=== PATIENT | female | born 1995 | race Caucasian/White ===

== ENCOUNTER 2023-02-18 15:45 | Outpatient (CLI) | payer OTHER, SELFPAY ==
--- NOTE | 2023-02-18 16:00 | CRLHL7_ITS ---
For Patients: As a result of the Cures Act, medical imaging exams and procedure reports are released immediately into your electronic medical record. You may view this report before your referring provider. If you have questions, please contact your health care provider. INDICATION: First trimester scan, establish dates. COMPARISON: None. TECHNIQUE: Real-time austni-scale imaging of the pelvis was performed. FINDINGS: Sonographic imaging demonstrates a single living intrauterine gestation. The embryo demonstrates a regular cardiac rate measuring 171 beats per minute. The embryo`s crown-rump length measurement of 2.5 cm corresponds to a gestational age of 9 weeks 2 days with a sonographic due date of 09/21/2023. There is a normal-appearing yolk sac. There are no gross abnormalities noted within the embryo at this early state of development. The gestational sac has a normal appearance. There is no evidence of a perigestational hemorrhage. The amount of fluid within the sac appears appropriate for gestational age. The cervix is closed. The myometrium appears normal. The ovaries are of normal size. There are no suspicious fluid collections noted in the cul-de-sac. IMPRESSION: Normal first trimester OB ultrasound exam. Gestational age calculated at 9 weeks 2 days with a sonographic due date of 09/21/2023. Dictated by Chacho Kennedy MD @ 02/20/2023 8:31:27 AM (Electronically Signed)
== END 2023-02-18 15:46 | disposition home or self-care (01) ==
PROVIDERS: PCP Nurse Practitioner Family; Visit Provider Registered Nurse
DX: Z34.91 Encounter for supervision of normal pregnancy, unspecified, first trimester (principal); Z3A.09 9 weeks gestation of pregnancy
CPT/HCPCS: 76817; 86703; 86706; 86803; 86850; 86900; 86901; 87086; 87340; 87491; 87591

== ENCOUNTER 2023-02-18 16:53 | Outpatient (CLI) | payer OTHER, SELFPAY ==
[2023-02-18 23:57] LABS: Chlamydia DNA Amplified* NOT DETECTED (No Detected); GC DNA Amplified* NOT DETECTED (No Detected)
== END 2023-02-18 16:54 | disposition home or self-care (01) ==
PROVIDERS: PCP Nurse Practitioner Family; Visit Provider Registered Nurse
DX: Z34.90 Encounter for supervision of normal pregnancy, unspecified, unspecified trimester (principal)
CPT/HCPCS: 86592; 86703; 86704; 86706; 86762; 86787; 86803; 86850; 86900; 86901; 87086; 87340; 87491; 87591

== ENCOUNTER 2023-05-06 16:18 | Outpatient (CLI) | payer OTHER, SELFPAY ==
--- NOTE | 2023-05-06 17:00 | US_ITS ---
Final Report Patient: CHRISTOPHER MILLS Facility:?[facility] Patient ID:?[id number] Site Patient ID:?[id number]. Site :?1995 Study:?US OB Pelvis -05/06/2023 5:26:21 PM Ordering Physician:?DEAN YUSUF Final Report: INDICATION: Evaluate anatomy. COMPARISON: 02/18/2023 TECHNIQUE: Real time austin scale imaging of the fetus was performed as well as color Doppler analysis of the umbilical vessels. FINDINGS: Sonographic imaging demonstrates a single living intrauterine gestation. Fetus demonstrates a regular cardiac rate of 147 beats per minute. Fetus has a transverse position, head maternal right. The placenta lies anteriorly without evidence of placenta previa. Placental edge 4.8 cm from the internal cervical os. Amniotic fluid volume appears normal. Single deepest vertical pocket: 5.7 cm. The cervix is closed and measures 4.1 cm in length. The composite ultrasound gestational age is calculated at 21 weeks 2 days with an estimated sonographic due date of 09/14/2023. The estimated weight is 428 grams which lies at the greater than 97th %. The following biometric measurements were obtained: Biparietal diameter: 5.0 cm/21 weeks 2 days 89th% Head circumference: 18.9 cm/21 weeks 1 day 84th% Abdominal circumference: 17.3 cm/22 weeks 2 days 95th% Femur length: 3.4 cm/20 weeks 5 day 62nd% The HC/AC ratio measures: 1.09 range (1.06-1.24) On anatomic survey, there is a normal appearance of the cerebral ventricles, cavum septi pellucidi, cisterna magna and cerebellum. The nose, lips, and facial profile appear normal. The cervical, thoracic and lumbar spine are well visualized and appear normal. There is a normal four-chamber heart view and the left and right ventricular outflow tracts appear normal. The diaphragm and stomach appear normal. The kidneys and bladder also appear normal. There is a normal three-vessel cord and cord insertion site. The four extremities appear normal. IMPRESSION: Sonographic gestational age 21 weeks 2 days and sonographic due date of 09/14/2023. Sonographic age 8 days ahead of the clinical age. Estimated weight greater than 97th percentile. Abdominal circumference 95th percentile. No intrinsic abnormalities noted on anatomic survey. Dictated by Chacho Kennedy MD @ 05/07/2023 7:12:08 AM (Electronic Signature)
== END 2023-05-06 16:19 | disposition home or self-care (01) ==
LOC: US 16:18
PROVIDERS: PCP Nurse Practitioner Family; Visit Provider Obstetrics & Gynecology
DX: Z34.02 Encounter for supervision of normal first pregnancy, second trimester (principal)
CPT/HCPCS: 76805

== ENCOUNTER 2023-06-30 14:30 | Outpatient (CLI) | payer OTHER, SELFPAY | END 2023-06-30 14:31 | disposition home or self-care (01) | LOC: NFLDREF 07-04 07:32 | PROVIDERS: PCP Nurse Practitioner Family; Referring Provider Nurse Practitioner Family; Visit Provider Advanced Practice Midwife | DX: Z34.93 Encounter for supervision of normal pregnancy, unspecified, third trimester (principal) | CPT/HCPCS: 86592 ==

== ENCOUNTER 2023-08-01 07:10 | Outpatient (CLI) | payer OTHER, SELFPAY ==
--- NOTE | 2023-08-01 07:15 | US_ITS ---
Patient: CHRISTOPHER MILLS Facility:?[facility] Patient ID:?[id number] Site Patient ID:?[id number]. Site :?1995 Study:?US-OB Pelvis GROWTH-08/01/2023 7:38:39 AM Ordering Physician:ERENDIRA FOLEY Final Report: INDICATION: Third trimester scan, evaluate growth. COMPARISON: 05/06/2023 TECHNIQUE: Real time austin scale imaging of the fetus was performed. FINDINGS: Sonographic imaging demonstrates a single living intrauterine gestation. Fetus demonstrates a regular cardiac rate of 157 beats per minute. Fetus has a vertex position. The placenta lies anteriorly. Amniotic fluid volume appears normal and there is a single deepest vertical pocket: 6.1 cm. The estimated weight is 2485gm which lies at the 94th %. On the prior OB ultrasound exam dated 05/06/2023 the estimated weight was at the greater than 97th%. BPD 94th percentile. HC 36th percentile. AC greater than 97th percentile. FL 70th percentile. The HC/AC ratio measures 0.96 range (0.94-1.11). IMPRESSION: Sonographic gestational age 34 weeks 2 days and sonographic due date of 09/10/2023. Sonographic age 12 days ahead of the clinical age. Estimated weight 94th percentile. Abdominal circumference greater than 97th percentile. Dictated by Chacho Kennedy MD @ 08/01/2023 10:12:26 AM Signed by:?Chacho Kennedy MD @08/01/2023 10:12:26 AM (Electronic Signature)
== END 2023-08-01 07:11 | disposition home or self-care (01) ==
LOC: US 07:10
PROVIDERS: PCP Nurse Practitioner Family; Visit Provider Obstetrics & Gynecology
DX: Z34.93 Encounter for supervision of normal pregnancy, unspecified, third trimester (principal); O26.843 Uterine size-date discrepancy, third trimester; Z3A.34 34 weeks gestation of pregnancy
CPT/HCPCS: 76816

== ENCOUNTER 2023-08-15 16:28 | Outpatient (CLI) | payer OTHER, SELFPAY | END 2023-08-15 16:29 | disposition home or self-care (01) | LOC: NFLDREF 08-28 16:29 | PROVIDERS: PCP Nurse Practitioner Family; Visit Provider Registered Nurse | DX: O99.113 Other diseases of the blood and blood-forming organs and certain disorders involving the immune mechanism complicating pregnancy, third trimester (principal); Z3A.34 34 weeks gestation of pregnancy | CPT/HCPCS: 80053; 85384; 85397; 85610; 85730 ==

== ENCOUNTER 2023-08-19 14:33 | Outpatient (CLI) | payer OTHER, SELFPAY | END 2023-08-19 14:34 | disposition home or self-care (01) | PROVIDERS: PCP Nurse Practitioner Family; Visit Provider Registered Nurse | DX: D69.6 Thrombocytopenia, unspecified (principal); Z13.21 Encounter for screening for nutritional disorder | CPT/HCPCS: 82607; 82746 ==

== ENCOUNTER 2023-08-27 10:44 | Outpatient (CLI) | payer OTHER, SELFPAY ==
--- NOTE | 2023-08-27 11:00 | CRLHL7_ITS ---
For Patients: As a result of the Century Cures Act, medical imaging exams and procedure reports are released immediately into your electronic medical record. You may view this report before your referring provider. If you have questions, please contact your health care provider. INDICATION: Excessive growth. FINDINGS: Fetus: Single. Presentation: Cephalic. cardiac psgmfebd=105 beats per minute and regular. BPD 9.2 cm EGA 37 weeks 3 days. HC 32.5 cm EGA 36 weeks 6 days. AC 34.4 cm EGA 38 weeks 2 days. FL 7.2 cm EGA 36 weeks 5 days. HC/AC=0.94. EFW= 3281g. Composite EGA=37 weeks 2 days Neer. Placenta: Anterior, os clear. Amniotic fluid: Adequate with the single deepest pocket=3.2 cm. Real-time exam: biometry performed only. IMPRESSION: Single live intrauterine measuring 37 weeks 2 days. Dictated by Reji Park MD @ 08/28/2023 12:35:15 PM (Electronically Signed)
== END 2023-08-27 10:45 | disposition home or self-care (01) ==
LOC: US 10:44
PROVIDERS: PCP Nurse Practitioner Family; Visit Provider Registered Nurse
DX: O36.63X0 Maternal care for excessive fetal growth, third trimester, not applicable or unspecified (principal); Z3A.37 37 weeks gestation of pregnancy
CPT/HCPCS: 76816; 87081; 87653

== ENCOUNTER 2023-09-05 08:17 | Outpatient (CLI) | payer OTHER, SELFPAY ==
--- NOTE | 2023-09-05 08:15 | CRLHL7_ITS ---
For Patients: As a result of the Century Cures Act, medical imaging exams and procedure reports are released immediately into your electronic medical record. You may view this report before your referring provider. If you have questions, please contact your health care provider. INDICATION: Obesity COMPARISON: 08.27.23 TECHNIQUE: Real time austin scale imaging of the fetus was performed. Without non-stress testing. FINDINGS: Sonographic imaging demonstrates a single living intrauterine gestation. Fetus demonstrates a regular cardiac rate of 137 beats per minute. Fetus has a vertex position. The amniotic fluid volume single deepest pocket measurement of 8.2 cm. KYLEE 18.3 cm. The fetus was active and demonstrated normal breathing movements. There was normal flexion and extension of the trunk and extremities. IMPRESSION: Normal biophysical profile score of 8 out of 8. Dictated by Chacho Kennedy MD @ 09/05/2023 11:34:20 AM (Electronically Signed)
== END 2023-09-05 08:18 | disposition home or self-care (01) ==
LOC: US 08:17
PROVIDERS: PCP Nurse Practitioner Family; Visit Provider Obstetrics & Gynecology
DX: O99.210 Obesity complicating pregnancy, unspecified trimester (principal)
CPT/HCPCS: 76819

== ENCOUNTER 2023-09-11 11:12 | Outpatient (CLI) | payer OTHER, SELFPAY ==
--- NOTE | 2023-09-11 11:15 | CRLHL7_ITS ---
For Patients: As a result of the Century Cures Act, medical imaging exams and procedure reports are released immediately into your electronic medical record. You may view this report before your referring provider. If you have questions, please contact your health care provider. INDICATION: Obesity COMPARISON: 09/05/2019 TECHNIQUE: Real time austin scale imaging of the fetus was performed. Without non-stress testing. FINDINGS: Sonographic imaging demonstrates a single living intrauterine gestation. Fetus demonstrates a regular cardiac rate of 145 beats per minute. Fetus has a vertex position. The amniotic fluid volume appears normal and there is a single deepest pocket measurement of 5.9 cm. The fetus was active and demonstrated normal breathing movements. There was normal flexion and extension of the trunk and extremities. The amniotic fluid is no echogenic. IMPRESSION: Normal biophysical profile score of 8 out of 8. Echogenic amniotic fluid, possibly representing vernix caseosa or meconium contamination. Dictated by Chacho Kennedy MD @ 09/12/2023 6:40:54 AM (Electronically Signed)
== END 2023-09-11 11:13 | disposition home or self-care (01) ==
LOC: US 11:12
PROVIDERS: PCP Nurse Practitioner Family; Visit Provider Obstetrics & Gynecology
DX: O99.210 Obesity complicating pregnancy, unspecified trimester (principal)
CPT/HCPCS: 76819

== ENCOUNTER 2023-09-11 13:15 | Outpatient (RCR) | payer OTHER, SELFPAY ==
[2023-08-28] MEDS: CYANOCOBALAMIN 1,000 MCG/ML inj 1000 MCG IM (14:50)
[2023-09-05] MEDS: CYANOCOBALAMIN 1,000 MCG/ML inj 1000 MCG IM (10:11)
[2023-09-05 10:13] VITALS: BP 95/66; PULSE 73; RESP 16; TEMP 36.5; O2SAT 96
[2023-09-11 12:40] VITALS: BP 106/70; PULSE 84; RESP 12; TEMP 36.7; O2SAT 97
[2023-09-11] MEDS: CYANOCOBALAMIN 1,000 MCG/ML inj 1000 MCG IM (12:49)
--- NOTE | 2023-09-19 11:23 | ONC.NURNOTE ---
pt did not show up for appt, left message with pt to call and reschedule.
== END 2024-02-24 23:59 | disposition home or self-care (01) ==
LOC: CCIC 13:15
PROVIDERS: PCP Nurse Practitioner Family; Referring Provider Nurse Practitioner Family; Visit Provider Internal Medicine Hematology & Oncology
DX: E53.8 Deficiency of other specified B group vitamins (principal); D69.6 Thrombocytopenia, unspecified
CPT/HCPCS: 96372; 99202; 99204; J3420

== ENCOUNTER 2023-09-14 16:10 | Inpatient (IN) | payer OTHER, SELFPAY ==
[2023-09-14 16:54] VITALS: BMI 42.5
[2023-09-14 17:08] LABS: Basophils Absolute Auto 0.03 K/uL (0.00-0.30); Basophils Percent Auto 0.4 % (0.0-3.0); Eosinophils Absolute Auto 0.04 K/uL (0.00-0.50); Eosinophils Percent Auto 0.5 % (0.0-7.0); Hematocrit 34.5 % (33.0-51.0); Hemoglobin* 11.1 gm/dL (12.0-16.0); Immature Granulocytes Abs Auto 0.02 K/uL (0.00-0.30); Immature Granulocytes Pct Auto 0.2 %; Lymphocytes Percent Auto 26.9 % (20-44); Mean Corpuscular HGB Conc 32 gm/dL (32-36); Mean Corpuscular Hemoglobin 29 pg (26-34); Mean Corpuscular Volume 89 fL (80-100); Monocytes Percent Auto 7.6 % (0.0-11.0); Neutrophils Absolute Auto 5.27 K/uL (1.7-7.0); Neutrophils Percent Auto 64.4 % (42.0-72.0); Platelet Count* 87 K/uL (140-440); RDW Coefficient of Variation % 14.6 % (11.5-15.5); Red Blood Count 3.87 m/uL (4.00-5.20); White Blood Count* 8.18 K/uL (4.50-11.00)
[2023-09-14 17:13] LABS: Slide Review Reflex No
--- NOTE | 2023-09-14 17:46 | W.PM.LDBA ---
Subjective History of Present Illness Time Seen by Provider: 17:46 Date Seen: 09/14/23 Narrative: Patient is being admitted to Labor and Delivery for induction of labor due to suspected macrosomia and mild polyhydramnios. She is a 28 year old at 386/7 weeks gestation. Her full history and physical was dictated by Dr. Crabtree on 09/05/23. Please see this for details. Patient denies new concerns or complaints. Specific Issues/Plans G2 P 0010 Boyfriend: Immanuel - he has a 4y.o. son. Baby: boy # Suspected macrosomia -EFW >97% at 20wks -32 weeks: BPD 94%, HC 36%, AC >97%, FL 70%, EFW 94%, 2485g -US at 36 weeks: BPD 87%, HC 32%, AC 96%t, FL 59%, EFW 86%, 3281g # Mild polyhydramnios (SDP 8.2cm, KYLEE 18.3) - Reassess next week, discussed medically indicated IOL at 39 weeks for mild poly and suspected macrosomia - IOL consent completed 09/04, tentatively requested CR on 09/13 and IOL on 09/14 at 39w0d # Thrombocytopenia at 28 weeks, plts 125 -Repeat CBC at 34 weeks: Platelets: 95. -Labs: Pathology smear, fibrinogen, PT, PTT INR, ADAMTS 13, CMP. -Referral to Hematology: [x ] CBC, T/S on admission [ ] Recheck CBC at 1 and 3 months - if platelets do not normalize by 3 months, refer back to Heme/Onc Referral to anesthesia: 08/27/23 Low B12, anemia - s/p B12 infusions # BMI 36.0 Hemoglobin A1c: 5.2% Recommend daily baby aspirin starting at 12 weeks. Consider weekly BPP and/or NST starting at 37 weeks # Varicella non-immune. Rec. PP vaccine. Covid Booster: 02/18/23 Flu Vaccine: 02/18/23 TDAP: 07/15/23 OB - Problem Based A/P Additional Plan (1) Thrombopenia: Status: Acute (2) Polyhydramnios: Status: Acute Plan 1. IOL: Cervix fingertip, will proceed with Cytotec per protocol, re check cervix after 3rd dose. 2. Thrombocytopenia: platelets upon admission 87,000. Planning nitrous for pain management. Anesthesia consult was completed prenatally. She will need repeat platelets and anesthesia re evaluation tomorrow. Patient understands that if platelets are lower than 100,000 she may not be a candidate for regional anesthesia at our institution. 3. Continuous monitoring due to polyhydramnios. 4. GBS negative no need for antibiotic prophylaxis. OB Exam Detailed Labor and Delivery Exam Patient Gravid: Yes Dilation (cm): 0 Effacement (%): 50 Cervix position: mid Consistency: firm Tachysystole: No Fetus (Single) Station: -3 Heart Rate Baseline: 140 Monitor Accelerations: Present Monitor Decelerations: None Intermediate Variability: Moderate (6-25)
[2023-09-14 17:50] VITALS: RESP 16; TEMP 36.8
[2023-09-14] MEDS: miSOPROStoL 25 MCG/0.25 TABLET VAGINAL ×2 (18:06→21:04)
[2023-09-14 20:01] VITALS: BP 120/62; PULSE 78
[2023-09-14 21:09] VITALS: BP 114/59; PULSE 83; PULSE 95; O2SAT 98
[2023-09-14 21:10] VITALS: RESP 16; TEMP 36.9
[2023-09-15] VITALS (18 sets, daily range): BP systolic 92–125; BP diastolic 51–65; PULSE 65–126; RESP 16–18; TEMP 36.6–37.2; O2SAT 90–100
[2023-09-15] MEDS: miSOPROStoL 25 MCG/0.25 TABLET VAGINAL ×2 (02:11→07:27)
--- NOTE | 2023-09-15 07:42 | P.OBPN_ITS ---
Subjective Time Seen by Provider: 07:30 Date Seen: 09/15/23 Narrative: Patient comfortable walking around the room. Report she feels mild contractions every 5-6 minutes. Denies increase in pelvic pressure. Objective Vital Signs: Last Vital Signs Temp 98.1 F 09/15/23 07:34 Pulse 77 09/15/23 07:30 Resp 16 09/15/23 07:34 BP 107/54 L 09/15/23 07:30 Pulse Ox 98 09/14/23 21:09 Pelvic Exam Dilation (cm): 0.5 Effacement (%): 50 Station: -3 Contractions Monitor mode: External Contraction pattern: Irregular Contraction intensity: Mild Pitocin Rate (mU/min): 0 Assessment Assessment: induction ongoing Station: -3 Status: Category l Heart Rate Baseline: 130 Intermediate Variability: Moderate (6-25) Monitor Accelerations: Present Monitor Decelerations: None Tracing Comments: - Cat I throughout the night. Labor Progress: - Cervical ripening on going. - S/p 3 doses of misoprostol per protocol. Last dose at 0215. Patient would have runs of Q1-2 minute contractions on the tocometer and periods of irregular contractions that are q5-6 minutes. Most of the contractions are mild and minimally palpable to patient. Plan Plan: - Misoprostol 25 mcg, dose #4 placed vaginally. - Repeat CBC due to gestational thrombocytopenia. She is still thinking she'll try to deliver without an epidural. - Plan for recheck in 3-4 hours. Discussed with patient that I am still unable to get through to her internal os. Once I can get through her internal os, I recommend cook catheter. She is amenable with this plan and was well counseled on possible prolonged induction of labor.
[2023-09-15 07:58] LABS: Basophils Absolute Auto 0.03 K/uL (0.00-0.30); Basophils Percent Auto 0.3 % (0.0-3.0); Eosinophils Absolute Auto 0.04 K/uL (0.00-0.50); Eosinophils Percent Auto 0.4 % (0.0-7.0); Hematocrit 34.7 % (33.0-51.0); Hemoglobin* 11.2 gm/dL (12.0-16.0); Immature Granulocytes Abs Auto 0.02 K/uL (0.00-0.30); Immature Granulocytes Pct Auto 0.2 %; Lymphocytes Percent Auto 18.8 % (20-44); Mean Corpuscular HGB Conc 32 gm/dL (32-36); Mean Corpuscular Hemoglobin 29 pg (26-34); Mean Corpuscular Volume 89 fL (80-100); Monocytes Percent Auto 6.7 % (0.0-11.0); Neutrophils Percent Auto 73.6 % (42.0-72.0); Platelet Count* 85 K/uL (140-440); RDW Coefficient of Variation % 14.7 % (11.5-15.5); Red Blood Count 3.92 m/uL (4.00-5.20); White Blood Count* 10.51 K/uL (4.50-11.00)
[2023-09-15 08:00] LABS: Slide Review Reflex No
[2023-09-15] MEDS: LACTATED RINGERS 1000 ML 1,000 ML 500 ML IV (12:41)
[2023-09-15] MEDS: OXYTOCIN 30 unit/500 ML in NS 30 UNIT/500 ML BAG IVPB (13:28)
--- NOTE | 2023-09-15 16:56 | PM.OBPNL ---
Subjective Time Seen by Provider: 12:00 Date Seen: 09/15/23 Narrative: Patient continues to be very comfortable. Objective Vital Signs: Last Vital Signs Temp 98.7 F 09/15/23 15:41 Pulse 67 09/15/23 15:41 Resp 18 09/15/23 15:41 BP 115/60 09/15/23 15:41 Pulse Ox 98 09/14/23 21:09 Pelvic Exam Dilation (cm): 0.5 Effacement (%): 50 Station: -3 Contractions Monitor mode: External Contraction pattern: Irregular Contraction intensity: Mild Pitocin Rate (mU/min): 0 Assessment Station: -3 Status: Category l Heart Rate Baseline: 130 Monitor Accelerations: Present Monitor Decelerations: None Plan Plan: - No progress with misoprostol 25mcg x 4. Unable to place cook cath despite attempt x 2 - Will start pitocin and reassess in 3-4 hours.
--- NOTE | 2023-09-15 17:15 | PM.OBPNL ---
Subjective Time Seen by Provider: 16:30 Date Seen: 09/15/23 Narrative: Patient continues to be comfortable and optimistic. Objective Vital Signs: Last Vital Signs Temp 98.7 F 09/15/23 15:41 Pulse 67 09/15/23 15:41 Resp 18 09/15/23 15:41 BP 115/60 09/15/23 15:41 Pulse Ox 98 09/14/23 21:09 Pelvic Exam Dilation (cm): 1 Effacement (%): 50 Station: -3 Contractions Monitor mode: External Contraction pattern: Irregular Contraction intensity: Mild Pitocin Rate (mU/min): 0 Assessment Assessment: induction ongoing Station: -3 Status: Category l Heart Rate Baseline: 130 Monitor Accelerations: Present Monitor Decelerations: None Plan Plan: - Unable to pass cook cath digitally as cervix is still posterior. - Speculum exam performed and cook catheter (50/50 cc) was passed through the cervix under direct visualization without issue. Patient tolerated the procedure well with minimal discomfort. - NST continues to be Cat I - Currently on low dose pitocin. Will start titrating pitocin 6 hours after cook cath placement. Patient is amenable to all aspects of the plan and all questions were answered.
[2023-09-15] MEDS: MORPHINE 10 MG/ML inj IM (17:58)
[2023-09-15] MEDS: LACTATED RINGERS 1000 ML 1,000 ML 124 ML IV (20:11)
[2023-09-15] MEDS: hydrOXYzine pamoate 25 MG CAPSULE 100 MG PO (21:54)
[2023-09-15] MEDS: TERBUTALINE 1 MG/ML INJ 0.25 MG SUBCUT (22:19)
[2023-09-15 22:46] LABS: Hematocrit 36.9 % (33.0-51.0); Hemoglobin* 11.9 gm/dL (12.0-16.0); Mean Corpuscular HGB Conc 32 gm/dL (32-36); Mean Corpuscular Hemoglobin 28 pg (26-34); Mean Corpuscular Volume 88 fL (80-100); Platelet Count* 86 K/uL (140-440); Red Blood Count 4.19 m/uL (4.00-5.20)
[2023-09-15 22:51] LABS: Slide Review Reflex No
[2023-09-15] MEDS: CEFAZOLIN 1 GM inj 3 GM IVP (22:55)
[2023-09-15 22:58] LABS: INR 0.88 (0.91-1.10); Partial Thromboplastin Time* 30 Seconds (23-33); Prothrombin Time 12.5 Seconds
[2023-09-15 23:15] LABS: Fibrinogen* 583 mg/dL (200-450)
[2023-09-15] MEDS: AZITHROMYCIN 500 MG in 0.9 % SODIUM CHLORIDE 250 ml 250 ML 255 MG IVPB (23:25)
[2023-09-15] MEDS: KETOROLAC 30 MG/ML inj IVP (23:34)
--- NOTE | 2023-09-15 23:36 | W.ANESCHARGE ---
Anesthesia Charges Start Date/Time Anesthesia Start Date: 09/15/23 Anesthesia Start Time: 22:40 Stop Date/Time Anesthesia Stop Date: 09/16/23 Anesthesia Stop Time: 00:15 Summary Emergency: [employer]
--- NOTE | 2023-09-15 23:38 | P.NB_ITS ---
Nerve Block Nerve Block Time Seen by Provider: 00:10 Date Seen: 09/16/23 Type of block requested by surgeon for post-operative analgesia: TAP Side: bilateral Time out performed: Yes Verification of patient name: Yes Verification of date of : Yes Site marking: site marked Name of person performing procedure: Seamus Monk Continuous monitoring Was continuous monitoring of O2 sat, B/P, railroad maintenance clerk, recorded every 15 minutes?: Yes Procedure Checklist: sterile prep, needles and gloves Ultrasound guided. Images saved: Yes Medications given in 5ml increments after negative aspiration: Marcaine %: 0.25 mL: 30 Needle gauge: 20 and Exparel mL: 10 Needle gauge: 20 Patient tolerated procedure well: Yes Additional comments: Injected in 5ml increments after negative aspiration Block Charges Block Charge (with Pro Fee): TAP Bilateral Use of Ultrasound Machine for Block: Yes- US Guidance/pain block
--- NOTE | 2023-09-15 23:56 | P.OBPN_ITS ---
Subjective Time Seen by Provider: 10:30 Date Seen: 09/15/23 Narrative: Retroactive documentation due to acute clinical care. Notified by RN that 2219 a code gila was being call on patient for a spontaneous prolonged deceleration ongoing for 6 minutes. She was on 1u of pitocin at the time, which was discontinued at the start of the deceleration. I asked for 0.25mg of willing to be given. Arrived in the OR at 2230. By that time heart rate had recovered back into the 120s with good variability. NST reviewed: prior to prolonged deceleration, NST had been Cat I since SROM at 1927. There was an abrupt deceleration to the 60s bpm following an acceleration to the 160s @2213. Heart rate trended up to the 90s and remained there until 2221. Two to three minutes after terbutaline was given heart rate returned to 120s. There was a 1 minute deceleration back to the 90s at 2224 but after that remained stable in the 120s-130s. NST from 2224 to 2238 was reactive and reassuring: baseline of 125 bpm, moderate variability, multiple 15 x 15 accelerations, negative decelerations. [place]: Intermittent periods of tachysystole. Other periods of Q3-4 minute contractions. Contractions minimally palpable to patient. SVE in OR: 1/75/-3, moderately soft, mid position. Copious amount of clear amniotic fluid noted. Discussed with patient that there has been minimal change throughout her entire labor induction. We have attempted every method of cervical ripening (misoprostol, cook catheter, pitocin etc) with minimal effect. She did not have the cook cath in place for a long time prior to SROM. This was unfortunately as the only way forward with attempt at vaginal delivery is titrating pitocin. Given that there was a very prolonged deceleration while on just 1u of pitocin and she is remote from delivery, I recommend delivery while NST was reassuring to avoid an emergent delivery. We discussed with our MACHINE JOINT CUTTER and patient is eligible for spinal anesthesia at a plt of 86 k/uL. Arti would like to move forward with a controlled delivery while tracing is reassuring and she is eligible for spinal anesthesia. The patient was consented for section and blood. She understands that the four main categories of risk include pain, bleeding, infection, and damage to surrounding structures. Intraoperative pain will be manage with spinal anesthesia or epidural anesthesia. If that those are not effective or not appropriate for the clinical situation, general anesthesia will be administered. Immediately postop, TAP block will be performed. Throughout her recovery course, she will have on PO pain medications such as ibuprofen, Tyl enol, and oxycodone. Regarding infection, she understands that we will be delivering appropriate antibiotics, however that the risk of infection following section still is approximately 5%. She understands that though the risk is very low that there is always a risk of damage to the bladder, uterus, ovaries, fallopian tubes, bowels, ureters, or even the fetus. She understands that most injuries can be addressed at the time of surgery, however, such an injury may require additional surgeries to fix. Lastly, she understands that a section carries a risk of bleeding, and that while this bleeding can be addressed with multiple medical and surgical modalities (including hysterectomy), that there is the possibility of needing a blood transfusion. She does accept a blood transfusion. Lastly, she understands that a section does increase risks for future pregnancies and deliveries including, but not limited to, the risk of uterine rupture or placenta accreta. All questions answered to patient's satisfaction and consent was signed. Plan: will proceed with primary delivery Repeat labs: hgb/plt: 11.9/86 INR: 0.88 L APTT: 30 Fibrinogen: 583 Objective Vital Signs: Last Vital Signs Temp 99 F 09/15/23 19:38 Pulse 65 09/15/23 21:16 Resp 18 09/15/23 15:41 BP 103/55 L 09/15/23 21:16 Pulse Ox 100 09/15/23 22:37 Pelvic Exam Dilation (cm): 1 Effacement (%): 50 Station: -3 Contractions Monitor mode: External Contraction pattern: Irregular Contraction intensity: Mild Pitocin Rate (mU/min): 0 Assessment Station: -3 Amniotic Membrane Status: SROM Status: Category l Heart Rate Baseline: 130 Monitor Accelerations: Present Monitor Decelerations: None
[2023-09-16] VITALS (36 sets, daily range): BP systolic 79–138; BP diastolic 45–83; PULSE 62–98; RESP 14–18; TEMP 36.4–37; O2SAT 92–99
--- NOTE | 2023-09-16 00:52 | P.OBPRC_ITS ---
Procedure Time Seen by Provider: 23:00 Date of procedure: 09/16/23 Will [facility] bill your pro fee for this procedure?: Yes Procedure Description: DELIVERY BY SECTION Date of Service: 09/15/23 Delivery time: 2305 Summary: Admitted for IOL due to polyhydramnios and suspected macrosomia at 39.0, Primary Lower uterine transverse section, Pfannenstiel, Closed with sutures, QBL 462 cc, No complications, Findings: Normal uterus, bilateral ovaries and tubes 8/9 weight 4100 g. Primary Indication: 1. Nonreassuring heart tracing remote from delivery Procedures: Primary Lower uterine transverse section Specimens Removed: Placenta Surgeon: Regla Barry MD Anesthesia: Spinal Report: Prophylactic antibiotic, 2 g of Ancef and 500 mg of Azithromycin was given before patient was taken to OR. After arrival to the operating room patient was placed in the supine position with left lateral tilt after administration of spinal anesthesia. Laparotomy A pfannenstiel incision was made through the anterior abdominal wall with #10 scalpel approximately 2 cm above the pubic symphysis. The incision was extended sharply with the #10 scalpel through the subcutaneous tissue to the level of fascia. The fascia was entered sharply with a #10 scalpel (Pfannenstiel) in the midline and extended in semi-elliptical fashion with digits. The rectus muscles were in the midline bluntly with digits. The peritoneum was then entered bluntly. The peritoneal incision was then extended superiorly and inferiorly under direct visualization with care being taken to avoid bladder and bowel. No adhesions were noted. The peritoneal incision was enlarged bluntly by lateral traction from the surgeon's and group fitness assistant department head's hand. Jorden retractor was inserted into the abdomen. Delivery A bladder flap was not developed as bladder was lower off the lower uterine segment. A low transverse hysterotomy was made then with #10 scalpel and extended laterally and cephalad with fingers in a low transverse fashion with Manu Perez technique with care being taken to avoid injury to the fetus. The amniotic cavity (membrane) was then entered with spontaneous rupture of membrane, and the amniotic fluid was noted to be clear, fetus was delivered cephalic. With delivery of the baby, no extension was noted. Placenta was delivered spontaneously with steady traction on cord and manual separation of placenta from uterine wall. Closure Uterine cavity was cleaned after placental delivery with lap sponge x 3. The hysterotomy was closed in two layers with stitches using 0 vicryl with continuous locking stitches and 0 monocryl in a continuous non locking manner. Three [id number] were placed in the middle the hysterotomy to ligate a 2 cm hematoma. Hemostasis was achieved as needed with electrocautery. Surya applied. The ovaries/tubes/uterine surface were evaluated. They were found to be normal. Jorden retractor removed and hemostasis was confirmed again. Fascia was closed with running stitches using 0 vicryl. Subcutaneous layer was irrigated. Hemostasis was checked for and found to be adequate. The subcutaneous layer was closed with running 2-0 chromic sutures. The skin was closed with 3-0 monocryl subcuticular sutures . The incision was cleaned and silver dressing applied. The procedure considered terminate at this time. Intraoperative Complications: None QBL: 462 cc Uterotonics: 40u of pitocin, 1g of TXA. Disposition: The patient tolerated the procedure well. She was recovered in Obstetric PACU for close monitoring in stable condition, with a contracted uterus and normal transvaginal bleeding. The infant was sent to mother?s bedside. A segment of the cord was obtained for umbilical cord gases. Cord blood gas was not available at time of operative note entered. The placenta was sent to pathology for unscheduled delivery, deceleration, and polyhydramnios. Debrief with OR team performed and specimen reviewed at the conclusion of the procedure. [place] Infant total score - 1 minute: 8 total score - 5 minute: 9
[2023-09-16] MEDS: LACTATED RINGERS 1000 ML 1,000 ML 125 ML IV (03:20)
[2023-09-16] MEDS: KETOROLAC 30 MG/ML inj IVP ×4 (05:34→23:09)
[2023-09-16 06:59] LABS: Basophils Percent Auto 0.1 % (0.0-3.0); Hematocrit 28.5 % (33.0-51.0); Hemoglobin* 9.2 gm/dL (12.0-16.0); Immature Granulocytes Pct Auto 0.2 %; Lymphocytes Percent Auto 7.8 % (20-44); Mean Corpuscular HGB Conc 32 gm/dL (32-36); Mean Corpuscular Hemoglobin 29 pg (26-34); Mean Corpuscular Volume 90 fL (80-100); Monocytes Percent Auto 5.3 % (0.0-11.0); Neutrophils Percent Auto 86.6 % (42.0-72.0); Platelet Count* 77 K/uL (140-440); RDW Coefficient of Variation % 14.7 % (11.5-15.5); Red Blood Count 3.18 m/uL (4.00-5.20); Slide Review Reflex No; White Blood Count* 12.93 K/uL (4.50-11.00)
--- NOTE | 2023-09-16 07:30 | P.OBPN_ITS ---
OB - PN:Subj Subjective Date Seen: 09/16/23 Patient comments OB post-: no complaints and pain well controlled [place] infant status: bottle and [place] feeding status: breast and bottle feeding Narrative: Arti is a 28 y.o. who was admitted to [facility] for induction of labor.? She had an uncomplicated primary .? ? The patient feels well.? The pain is well controlled with current medications.? She has no new complaints.? She is breast feeding and supplementing and reports things are going well.? the patient has done well.? Vitals have been stable.? She has remained afebrile.? Has a good appetite, is tolerating a general diet.? She is voiding without difficulty.? She is passing gas and has not had a bowel movement.? She is ambulating and denies any dizziness.? Has Smal l amount of rubra lochia.?Platelets today are 77, Hgb 9.2 denies dizziness or shortness of breath. OB - PN: Obj Exam Physical Exam: Vital signs: Temp Pulse Resp BP Pulse Ox O2 Del Method 98.6 F 72 16 95/60 93 Room Air 09/16/23 04:35 09/16/23 04:35 09/16/23 07:00 09/16/23 04:35 09/16/23 04:35 09/16/23 04:35 Narrative: GENERAL APPEARANCE:? normal affect, alert, no distress MOOD:? appropriate CHEST:? clear to auscultation HEART:? regular rate and rhythm ABDOMEN:? soft, non-tender the uterine fundus is firm At Umbilicus, Midline and is appropriate for the stage of recovery. EXTREMITIES:? normal and trace edema Incision: Silver nitrate dressing clean dry and intact OB - PN: Obj Data Labs Labs: Laboratory Results - last 24 hr 09/15/23 09/15/23 09/16/23 07:45 22:37 06:42 WBC 10.51 13.00 H 12.93 H RBC 3.92 L 4.19 3.18 L Hgb 11.2 L 11.9 L 9.2 L Hct 34.7 36.9 28.5 L MCV 89 88 90 MCH 29 28 29 MCHC 32 32 32 RDW Coeff of Lina 14.7 14.7 Plt Count 85 L 86 L 77 L Neut % (Auto) 73.6 H 86.6 H Lymph % (Auto) 18.8 L 7.8 L Amador % (Auto) 6.7 5.3 Eos % (Auto) 0.4 0.0 Baso % (Auto) 0.3 0.1 Neut # (Auto) 7.70 H 11.20 H Lymph # (Auto) 2.00 1.00 Amador # (Auto) 0.70 0.70 Eos # (Auto) 0.04 0.00 Baso # (Auto) 0.03 0.00 Abs Immat Gran (auto) 0.02 0.00 Imm/Tot Granulo (auto) 0.2 0.2 INR 0.88 L APTT 30 Fibrinogen 583 H OB - PN: A/P Delivery Assessment and Plan (1) Thrombopenia: Status: Acute (2) Polyhydramnios: Status: Acute (3) Anemia due to acute blood loss: Status: Acute (4) care and examination immediately after delivery: Status: Acute (5) Lactating mother: Status: Acute Plan day: 1 Plan: routine care Comments: Assessment/Plan?G 2 P 1 status post uncomplicated primary .? ?? 1.? Continue route PP cares? 2.? .? May see if desired? 3.? Anticipate discharge home tomorrow or the following day per pt preference? 4.? Acute anemia.? Iron supplement ordered 5. Platelets 77 today, consider repeat CBC in AM. ?
[2023-09-16] MEDS: DOCUSATE SODIUM 100 MG CAPSULE PO (08:45)
[2023-09-16] MEDS: FERROUS SULFATE 325 MG TABLET 650 MG PO (08:45)
[2023-09-16 22:50] LABS: Rapid Plasma Reagin (RPR) Non Reactive (Non Reactive)
[2023-09-17] MEDS: KETOROLAC 30 MG/ML inj IVP (05:10)
[2023-09-17 06:39] LABS: Basophils Absolute Auto 0.03 K/uL (0.00-0.30); Basophils Percent Auto 0.3 % (0.0-3.0); Eosinophils Absolute Auto 0.06 K/uL (0.00-0.50); Eosinophils Percent Auto 0.7 % (0.0-7.0); Hematocrit 29.5 % (33.0-51.0); Hemoglobin* 9.5 gm/dL (12.0-16.0); Immature Granulocytes Abs Auto 0.04 K/uL (0.00-0.30); Immature Granulocytes Pct Auto 0.4 %; Lymphocytes Absolute Auto 2.35 K/uL (0.90-2.90); Lymphocytes Percent Auto 25.6 % (20-44); Mean Corpuscular HGB Conc 32 gm/dL (32-36); Mean Corpuscular Hemoglobin 29 pg (26-34); Mean Corpuscular Volume 91 fL (80-100); Monocytes Percent Auto 7.7 % (0.0-11.0); Neutrophils Percent Auto 65.3 % (42.0-72.0); Platelet Count* 79 K/uL (140-440); RDW Coefficient of Variation % 15.3 % (11.5-15.5); Red Blood Count 3.26 m/uL (4.00-5.20); White Blood Count* 9.19 K/uL (4.50-11.00)
[2023-09-17 07:26] LABS: Slide Review Reflex Yes
--- NOTE | 2023-09-17 07:26 | P.DS_ITS ---
DS: Providers Provider Date Seen: 09/17/23 Date of admission: 09/14/23 16:10 Primary care physician: Amanda Leon CNP, [facility] [employer] Admitting Clinician: Molly Christiansen MD Attending Physician on discharge: Kayce You APRN, [facility] DS: Diagnosis Discharge Diagnosis (1) care and examination immediately after delivery: Status: Acute (2) Lactating mother: Status: Acute (3) Anemia due to acute blood loss: Status: Acute (4) Thrombopenia: Status: Acute Exam Narrative: Exam Narrative: GENERAL APPEARANCE:? normal affect, alert, no distress MOOD:? appropriate CHEST:? clear to auscultation HEART:? regular rate and rhythm ABDOMEN:? soft, non-tender the uterine fundus is At Umbilicus, Midline and is appropriate for the stage of recovery. EXTREMITIES:? normal and no edema INCISION: Dressing in place; clean, dry, and intact Const: Vital Signs, click to edit/add: Vital Signs - 24 hr 09/16/23 08:06 09/16/23 08:06 09/16/23 09:16 Temperature 97.6 F Pulse Rate [Pulse Oximeter] 62 Respiratory Rate 16 16 14 Blood Pressure [Le ft Arm] 86/52 L Pulse Oximetry 92 Oxygen Delivery Me thod Room Air 09/16/23 11:58 09/16/23 11:58 09/16/23 12:16 Temperature 98.2 F Pulse Rate [Pulse Oximeter] 90 Respiratory Rate 16 16 16 Blood Pressure [Le ft Arm] 97/64 Pulse Oximetry 98 Oxygen Delivery Me thod Room Air 09/16/23 16:38 09/16/23 19:27 09/16/23 19:27 Temperature 98.1 F Pulse Rate [Pulse Oximeter] 88 91 Respiratory Rate 16 16 18 Blood Pressure [Le ft Arm] 97/61 97/65 Pulse Oximetry 98 99 Oxygen Delivery Me thod Room Air Room Air 09/16/23 20:07 09/16/23 21:16 09/16/23 22:16 Temperature Pulse Rate [Pulse Oximeter] Respiratory Rate 18 18 18 Blood Pressure [Le ft Arm] Pulse Oximetry Oxygen Delivery Me thod 09/16/23 23:09 09/16/23 23:44 Temperature 98.1 F Pulse Rate [Pulse Oximeter] 88 Respiratory Rate 18 18 Blood Pressure [Le ft Arm] 100/66 Pulse Oximetry Oxygen Delivery Me thod OB - DS: Summary Hospital Course Hospital Course: Arti is a 28 y.o. G 2 P 1 who was admitted to [facility] for induction of labor for macrosomia/mild polyhydramnios. ?She had a section that was uncomplicated. The patient feels well. ?The pain is well controlled with current medications. ?She has no new complaints. ?She is breast feeding and reports things are going well. the patient has done well.? Vitals have been stable.? She has remained afebrile.? Has a good appetite, is tolerating a general diet. ?She is voiding without difficulty.? She is passing gas and has had a bowel movement.? She is ambulating and denies any dizziness.? Has small amount of rubra lochia. She is undecided on prevention. Problems: anemia plan: Discharge home with baby. Follow up in 2 weeks and 6 weeks. , may see if needed Hgb 9.5. Iron supplement ordered orally every other day Thrombocytopenia Labs stable posptartum Follow-up at 2 weeks and 6 weeks, if still low consider referral to hematology Peripartum Data Infant delivery method: Primary C/S; Labored Procedures: Procedures Operation Date: 09/15/23 22:30 Actual Procedure Side Surgeon p Primary Section Not Applicable Reglamir Barry MD complications: none Infant Gender: Male Discharge Plan: Home Status at Discharge Functional status at discharge: independent ambulation Overall status at discharge: patient is progressing back to baseline Time Spent with Patient Time attestation: Total time spent providing and/or coordinating discharge services: Time spent: Less than 30 minutes Discharge Plan Discharge Disposition: Home, Self-Care Date of Admission: 09/14/23 16:10 Attending Provider on Discharge: Kayce You Primary Care Provider: Amanda Leon Condition: Stable Anticipated Discharge Date/Time: 09/17/23 12:00 Discharge Medications: New (DME) breast pump Device See Rx Instructions .Route Qty: 1 0RF Rx Instructions: As directed docusate sodium 100 mg Capsule 100 mg PO DAILY Qty: 90 0RF ibuprofen 600 mg Tablet 600 mg PO Q6H PRN (Reason: Pain) Qty: 60 0RF oxycodone 5 mg Tablet 5 - 10 mg PO Q4H PRN (Reason: Pain) Qty: 5 0RF acetaminophen 500 mg Tablet 1,000 mg PO Q6H PRN (Reason: Pain) Qty: 0 0RF Continued ferrous fumarate-vitamin C 132-250 mg tablet 1 tab PO DAILY Patient Comments: once every other day DHA 200 mg capsule 200 mg PO DAILY Discontinued aspirin [Adult Low Dose Aspirin] 81 mg tablet,delayed release (DR/EC) 81 mg PO QDAY Discharge Orders: Discharge Order (Routine); Ordered 09/17/23 Ordered By: Kayce You Patient Education: OB Over the Counter Medication Information, OB /Breast Feeding Additional Instructions: Discharge instructions were reviewed with the patient including signs and symptoms of infection and home going medications Lifting Restrictions: 20 pounds for 6 weeks No not submerge incision under water X 2 weeks? Nothing vaginally for 6 weeks: no tampons or intercourse Do not drive while taking narcotic pain medication(s) Off Work or School for 8 weeks 1-week incision check with dressing removal. 2-week visit: incision check, discuss feeding concerns, review control options and screen for anxiety/depression. 6-week visit for an annual exam. consultation services are available to all mothers and babies for the first year after delivery.? To make an appointment, please call [phone]. Activity Level: Activity as Tolerated Discharge Diet: Regular Follow Up Appointments: [facility] [Provider Group] Forms: MyHealth Info Instructions
[2023-09-17 07:28] LABS: Slide Review Acceptable Review (Acceptable)
[2023-09-17 07:37] VITALS: BP 102/61; PULSE 74; RESP 16; TEMP 36.6; O2SAT 97
[2023-09-17] MEDS: ACETAMINOPHEN 500 MG TABLET 1000 MG PO (09:36)
[2023-09-17] MEDS: IBUPROFEN 600 MG TABLET PO (12:06)
== END 2023-09-17 12:25 | disposition home or self-care (01) | DRG 787 ==
PROVIDERS: Advanced Practice Midwife; Obstetrics & Gynecology; Admitting Provider Obstetrics & Gynecology; PCP Nurse Practitioner Family; Visit Provider Obstetrics & Gynecology
PROC: 3E033VJ Introduction of Other Hormone into Peripheral Vein, Percutaneous Approach (ICD-10-PCS; CPT 59514; principal; 2023-09-15 22:15)
DX: O36.63X0 Maternal care for excessive fetal growth, third trimester, not applicable or unspecified (principal); D62 Acute posthemorrhagic anemia; O99.12 Other diseases of the blood and blood-forming organs and certain disorders involving the immune mechanism complicating childbirth; O76 Abnormality in fetal heart rate and rhythm complicating labor and delivery; D69.6 Thrombocytopenia, unspecified; O40.3XX0 Polyhydramnios, third trimester, not applicable or unspecified; O90.81 Anemia of the puerperium; G89.18 Other acute postprocedural pain; Z37.0 Single live birth; Z3A.39 39 weeks gestation of pregnancy
CPT/HCPCS: 01961; 36415; 59200; 64488; 76942; 85018; 85025; 85027; 85384; 85610; 85730; 86592; 86850; 86900; 86901; 88307; 99140; A9270; C1726; C9290; J0456; J0665; J0690; J1100; J1885; J2270; J2274; J2371; J2405; J2590; J3105; J7050; J7120